=== PATIENT | female | born 1995 | race Hispanic/Latino ===

== ENCOUNTER 2018-04-24 12:49 | Inpatient (IN) | payer OTHER, MEDICAID ==
[~2018-04-24] VITALS: Ht 162.6 cm; Wt 92.5 kg
[2018-04-24] MEDS ORDERED: LACTATED RINGERS 1000ML 1,000 ML IV PRN (13:18)
[2018-04-24] MEDS ORDERED: OXYTOCIN 10 USP UNITS/ML 20 UNIT in LACTATED RINGERS 1000ML 1,000 ML IV SCH (13:30)
[2018-04-24 13:49] LABS: HEMATOCRIT 32.1 % (36-48); MEAN CORPUSCULAR HEMOGLOBIN 23.1 pg (27.0-33.0); MEAN CORPUSCULAR HGB CONC 32.4 g/dL (32.0-36.0); MEAN CORPUSCULAR VOLUME 71.1 fL (79-99); PLATELET COUNT (AUTO) 273 K/uL (130-400); RED BLOOD CELL COUNT(AUTO) 4.51 MIL/uL (4.00-5.50); RED CELL DISTRIBUTION WIDTH 21.4 % (11.0-15.5)
[2018-04-24 13:52] LABS: APPEARANCE,URINE CLEAR (CLEAR); BILIRUBIN,URINE SMALL (NEGATIVE); COLOR,URINE YELLOW (YELLOW); GLUCOSE, URINE (UA) NEGATIVE (NEGATIVE); KETONES,URINE NEGATIVE (NEGATIVE); LEUKOCYTE ESTERASE ,URINE MODERATE (NEGATIVE); NITRATE,URINE NEGATIVE (NEGATIVE); OCCULT BLOOD,URINE SMALL (NEGATIVE); PROTEIN,URINE TRACE (NEGATIVE)
[2018-04-24 13:53] LABS: BACTERIA,URINE Rare /HPF (None Seen); RBC,URINE 0-1 /HPF (0-1)
[2018-04-24 13:54] LABS: MUCUS,URINE Rare LPF (None Seen); SQUAMOUS EPITHELIAL CELL,UR Rare /HPF (0-2)
[2018-04-24] MEDS ORDERED: OXYTOCIN 10 USP UNITS/ML ONE ×2 (14:04→17:02)
[2018-04-24] MEDS ORDERED: MEPERIDINE-PF 25 MG/ML SYG ONE (15:20)
[2018-04-24] MEDS ORDERED: PROMETHAZINE HCL 25 MG/ML 1ML AMPULE IM ONE (15:20)
[2018-04-24] MEDS ORDERED: MEPERIDINE-PF 25 MG/ML SYG IVP ONE (15:30)
[2018-04-24] MEDS ORDERED: PROMETHAZINE HCL 25 MG/ML 1ML AMPULE IM SCH (15:30)
[2018-04-24] MEDS ORDERED: SILVER NITRATE APPLICATOR 1 SWAB TP ONE (15:49)
[2018-04-24] MEDS ORDERED: OXYTOCIN-LR 20 UNITS/1000 ML 1,000 ML IV SCH (16:00)
[2018-04-24] MEDS ORDERED: MEASLES/MUMPS/RUBELLA VACCINE, LIVE 0.5 ML/VIAL SQ PRN (16:00)
[2018-04-24] MEDS ORDERED: WITCH HAZEL 1 PAD TP PRN (16:00)
[2018-04-24] MEDS ORDERED: LANOLIN 30GM OINTMENT TP PRN (16:00)
[2018-04-24] MEDS ORDERED: DIPH,PERTUSS(ACELL),TET VAC/PF 0.5 ML VIAL IM PRN (16:00)
[2018-04-24] MEDS ORDERED: ACETAMINOPHEN 325 MG TAB PO PRN (16:00)
[2018-04-24 17:20] VITALS: BP 115/67
[2018-04-24] MEDS ORDERED: DIPH,PERTUSS(ACELL),TET VAC/PF 0.5 ML VIAL IM ONE (17:30)
[2018-04-24] MEDS ORDERED: DOXY1TAB3 PO (17:34)
[2018-04-24] MEDS ORDERED: FERR-82 PO (17:34)
[2018-04-24] MEDS ORDERED: LEVO75TA4 PO (17:34)
[2018-04-24] MEDS ORDERED: BENZOCAINE/LANOLIN/ALOE VERA 60 ML AEROSOL TP PRN (17:45)
[2018-04-24] MEDS: IBUPROFEN 600 MG TABLET PO PRN (17:48)
[2018-04-24 19:43] VITALS: BP 123/69
[2018-04-24] MEDS: DOCUSATE SODIUM 100 MG CAP PO SCH (21:02)
[2018-04-24 23:35] VITALS: BP 123/85
[2018-04-25] MEDS: IBUPROFEN 600 MG TABLET PO PRN ×2 (00:25→21:22)
[2018-04-25 04:00] VITALS: BP 115/65
[2018-04-25 06:14] LABS: HEPATITIS Bs ANTIGEN SCREEN P Negative (Negative)
[2018-04-25 07:51] VITALS: BP 121/65
[2018-04-25 07:51] LABS: HEMATOCRIT 27.4 % (36-48); MEAN CORPUSCULAR HGB CONC 31.1 g/dL (32.0-36.0); MEAN CORPUSCULAR VOLUME 70.8 fL (79-99); PLATELET COUNT (AUTO) 210 K/uL (130-400); RED BLOOD CELL COUNT(AUTO) 3.87 MIL/uL (4.00-5.50); RED CELL DISTRIBUTION WIDTH 21.3 % (11.0-15.5); WHITE BLOOD COUNT (AUTO) 11.6 K/uL (4.8-10.8)
[2018-04-25 11:27] VITALS: BP 95/59
[2018-04-25 15:31] VITALS: BP 111/69
[2018-04-25 20:16] VITALS: BP 117/71
[2018-04-25] MEDS: DOCUSATE SODIUM 100 MG CAP PO SCH (21:20)
[2018-04-25 23:31] VITALS: BP 99/72
[2018-04-26 03:43] VITALS: BP 104/73
[2018-04-26 07:39] VITALS: BP 120/78
[2018-04-26] MEDS: DOCUSATE SODIUM 100 MG CAP PO SCH (08:25)
[2018-04-26 11:29] VITALS: BP 111/66
== END 2018-04-26 14:00 | disposition home or self-care (01) | DRG 807 ==
LOC: LDH 12:49 → WSH 17:20
PROVIDERS: ADMIT Obstetrics & Gynecology; ATTEND Obstetrics & Gynecology
PROC: 10E0XZZ Delivery of Products of Conception, External Approach (ICD-10-PCS; principal; 2018-04-24)
PROC: 10907ZC Drainage of Amniotic Fluid, Therapeutic from Products of Conception, Via Natural or Artificial Opening (ICD-10-PCS; 2018-04-24)
PROC: 3E02340 Introduction of Influenza Vaccine into Muscle, Percutaneous Approach (ICD-10-PCS; 2018-04-24)
PROC: 3E0234Z Introduction of Serum, Toxoid and Vaccine into Muscle, Percutaneous Approach (ICD-10-PCS; 2018-04-24)
DX: O99.284 Endocrine, nutritional and metabolic diseases complicating childbirth (principal); Z37.0 Single live birth; E03.9 Hypothyroidism, unspecified; Z3A.36 36 weeks gestation of pregnancy; Z23 Encounter for immunization
CPT/HCPCS: 36415; 81001; 85027; 86592; 86850; 86900; 86901; 87340; 90715; J2175; J2550; J2590; Q2038

== ENCOUNTER 2023-10-02 14:40 | Emergency (ER) | payer MEDICAID, OTHER ==
[~2023-10-02] VITALS: Ht 162.6 cm; Wt 96.6 kg
[~2023-10-02 14:40] MED LIST: DOXY1TAB3 PO; FERR-82 PO; LEVO75TA4 PO
[2023-10-02 15:02] VITALS: O2SAT 98
[2023-10-02] MEDS ORDERED: ACETAMINOPHEN 500 MG TABLET PO ONE (15:30)
[2023-10-02 16:30] LABS: BASOPHILS # (AUTO) 0.05 K/uL (0.00-0.20); BASOPHILS % (AUTO) 0.4 % (0.0-5.0); EOSINOPHILS # (AUTO) 0.02 K/uL (0.00-0.70); EOSINOPHILS % (AUTO) 0.1 % (0.0-8.0); HEMATOCRIT 36.5 % (36-48); IMMATURE GRANULOCYTE ABSOLUTE 0.07 K/uL (0-1); LYMPHOCYTES # (AUTO) 1.5 K/uL (1.0-4.8); LYMPHOCYTES % (AUTO) 11.2 % (21.0-51.0); MEAN CORPUSCULAR HEMOGLOBIN 24.9 pg (27.0-33.0); MEAN CORPUSCULAR HGB CONC 32.3 g/dL (32.0-36.0); MEAN CORPUSCULAR VOLUME 77.2 fL (79-99); MONOCYTES % (AUTO) 7.4 % (3.0-13.0); NEUTROPHILS # (AUTO) 10.8 K/uL (1.8-7.7); NEUTROPHILS % (AUTO) 80.4 % (40.0-77.0); PLATELET COUNT (AUTO) 300 K/uL (130-400); RED BLOOD CELL COUNT(AUTO) 4.73 MIL/uL (4.00-5.50); RED CELL DISTRIBUTION WIDTH 17.2 % (11.0-15.5); WHITE BLOOD COUNT (AUTO) 13.4 K/uL (4.8-10.8)
[2023-10-02 16:36] LABS: CREATININE 0.6 mg/dL (0.5-1.0); POTASSIUM 3.6 mmol/L (3.5-5.1)
[2023-10-02 16:39] LABS: INR <= 0.93 (0.85-1.15)
[2023-10-02 16:41] LABS: PARTIAL THROMBOPLASTIN TIME 29.5 SEC (26.3-35.5)
[2023-10-02 17:08] VITALS: BP 122/87; PULSE 78; RESP 18
== END 2023-10-02 17:26 | disposition home or self-care (01) ==
LOC: EDH 14:40
DX: O03.9 Complete or unspecified spontaneous abortion without complication (principal); O26.899 Other specified pregnancy related conditions, unspecified trimester; R10.2 Pelvic and perineal pain; Z3A.00 Weeks of gestation of pregnancy not specified
CPT/HCPCS: 36415; 76801; 80048; 84702; 85025; 85610; 85730; 86850; 86900; 86901